=== PATIENT | male | born 2005 | race Caucasian/White ===

== ENCOUNTER 2024-08-16 19:22 | Emergency (ER) | payer BC, SELFPAY ==
--- NOTE | ~2024-08-16 | US_ITS ---
CLINICAL HISTORY: L testicle pain, swelling US Scrotum with Doppler Comparison: None Findings: Right testicle measures 3.9 x 3.4 x 1.6 cm. Left testicle measures 3.9 x 2.9 x 1.9 cm. No defined mass of the either imaged testicle. Mild asymmetry of the mediastinum testes noted. Increased vascularity, edema, and mild mass-effect of the left epididymis concerning for left-sided epididymitis, particularly in the tail. Vascular flow is preserved to both testicles without definite ultrasound findings of testicular torsion. No significant hydrocele at this time. No defined varicocele by ultrasound. Question mild fluid in the imaged inguinal canals, right greater than left. No well-defined hernia by ultrasound at this time. Doppler: Doppler arterial waveform of the right testicle demonstrates peak systolic velocity of 8 cm per 2nd and resistive index of 0 point 5. Doppler arterial waveform of the left testicle demonstrates peak systolic velocity of 6 centimeters/second and resistive index of 0.5, accounting for aliasing artifacts (image 28 of 43). IMPRESSION: 1. Increased vascularity and edema of the left epididymis concerning for left-sided epididymitis. 2. No ultrasound findings of testicular torsion. This document has been electronically signed by: Serafin Solitario MD on 08/16/2024 20:57:27
--- NOTE | 2024-08-16 19:41 | ED.MALEGU ---
HPI - Male Genitourinary General Chief complaint: Urogenital-Male Stated complaint: Left Testicle pain pt says surg day was 08/15 Time Seen by Provider: 08/16/24 20:01 Source: patient, RN notes reviewed and old records reviewed Mode of arrival: ambulatory Limitations: no limitations History of Present Illness ED Provider: Mannie PEGUERO Narrative: 19-year-old male who denies any past medical history presents for evaluation of left testicular pain. Patient reports his pain started a little over a week ago. He saw a urologist on 08/08/2024 for ?cysts on my scrotum. ? The patient was told to need to have surgery to drain the cysts However, on the day of his surgery he complained of worsening pain to the left scrotum ?my testicle was higher than it should be. ? His urologist, Dr Zelaya felt the patient may have testicular torsion and opted to change his appointment to 08/25/2024. The patient reports worsening pain to left testicle pain Denies any fevers, chills, difficulty urinating. Denies any urethral discharge He reports that he was monogamous with 1 sexual partner and is not concerned for sexually transmitted infection Related Data Previous Rx's ?Medication ?Instructions ?Recorded doxycycline hyclate 100 mg tablet 100 mg PO BID #20 tabs 08/16/24 Allergies Allergy/AdvReac Type Severity Reaction Status Date / Time No Known Allergies Allergy Verified 08/16/24 19:47 Review of Systems Constitutional: Constitutional: Denies body ache(s), Denies chills and Denies fever(s) Cardiovascular: Cardiovascular: Denies chest pain and Denies dyspnea Respiratory: Respiratory: Denies cough and Denies dyspnea Gastrointestinal: Gastrointestinal: Denies abdominal pain, Reports nausea and Denies vomiting Genitourinary: Genitourinary: Denies painful ejaculations, Denies penile discharge, Reports scrotal swelling, Reports testicular mass, Reports testicular pain, Denies urinary frequency, Denies urinary hesitancy and Denies urinary urgency Musculoskeletal: Musculoskeletal: Denies back pain Integumentary/Breasts: Skin/Breast: Denies rash PMFSH Social History Social History Smoked in Last 30 Days: No Use of substances other than those prescribed or required for medical reasons: Yes Substance Use Type: Marijuana Advance Directives: No Advance Directives Information Provided: No Physical Exam Vital Signs: Vital Signs: Last Vital Signs Temp 98.5 F 08/16/24 21:52 Pulse 90 08/16/24 21:52 Resp 16 08/16/24 21:52 BP 146/61 H 08/16/24 21:52 Pulse Ox 99 08/16/24 21:52 O2 Del Method Room Air 08/16/24 21:52 BMI result Body Mass Index 20.6 Const: General: healthy appearing, comfortable, no acute distress, alert and awake Nutritional Appearance: well nourished Orientation/consciousness: patient oriented x3 HEENT: Head: Yes normocephalic and Yes atraumatic Throat: Yes posterior oropharynx normal Eyes: Eyelids: Yes eyelids normal Conjunctivae: conjunctivae normal Sclerae: sclerae normal Corneas: corneas normal Pupils: Equal, round and reactive pupils present EOM: EOMs intact bilaterally Neck: Neck: Yes full ROM Resp: Effort & Inspection: normal respiratory effort, able to speak in complete sentences and not labored GI: Inspection: No distended Palpation (GI): Soft to palpation, not firm, nontender, no guarding and not rigid Skin: General skin exam: elasticity normal Neuro: General: patient oriented x3 Cranial nerves: Yes Equal, round and reactive pupils present and Yes Bilaterally intact EOM present Cognition (Neuro): normal cognition Course Course Course Narrative: This is an RME performed by Cindy Lawler CNP: Additional HPI, ROS, PE not included below will be deferred to primary provider. Patient is a 19-year-old male who presents to the emergency department for evaluation. He has been experiencing pain and swelling to the left testicle for the past 3-4 weeks. States he was seen by his primary care doctor initially who performed a physical examination and expressed concern for cysts on the testicle, he was [facility] to [facility] had an appointment, had an outpatient surgery scheduled for removal of the cyst. On the day of that surgery (1 week ago) endorsed significant pain that he was having to the left testicle as well as a visual heightened appearance, was advised at that time that he had testicular torsion, no radiographic or ultrasound imaging was obtained and he had a surgery scheduled for 08/25/2024. Denies any family history of testicular cancer. Admits to father having testicular torsion at a young age. Plan: Scrotal ultrasound with Doppler, urinalysis Medications Administered Discontinued Medications Generic Name Dose Route Start Last Admin Trade Name Buddy PRN Reason Stop Dose Admin Ceftriaxone Sodium 500 mg/ 0 mg 08/16/24 21:10 08/16/24 21:50 Lidocaine HCl 1 ml IM 08/16/24 21:11 1 kit ONCE ONE Administration Doxycycline Monohydrate 100 mg 08/16/24 21:10 08/16/24 21:51 Doxycycline Monohydrate 100 Mg Capsule PO 08/16/24 21:11 100 mg ONCE ONE Administration Medical Decision Making Medical Decision Making [facility] [place] Narrative: 19-year-old male presents for evaluation of left testicular pain and swelling. His labs are unremarkable, his ultrasound is concerning for epididymitis. I did discuss that this is likely a sexually transmitted infection. Gonorrhea and chlamydia serology is still pending. We will treat the patient with ceftriaxone and doxycycline. I advised him to abstain from sexual intercourse until he completes his course of antibiotics. You may still follow up with his own urologist Differential Diagnosis Differential Diagnoses: The differential diagnosis associated with the presentation includes Testicular torsion Hydrocele Epididymal cyst Varicocele Epididymitis Lab Data MDM Lab Attestation statement: I reviewed the patient's lab results. No leukocytosis or significant anemia. Normal platelet count. No electrolyte abnormalities 08/16/24 04:40 08/16/24 21:25 Labs: Lab Results 08/16/24 08/16/24 08/16/24 Range/Units 04:40 20:47 21:25 WBC 7.2 (4.8-10.8) X10*3/uL RBC 4.14 L (4.60-5.80) X10*6/uL Hgb 12.5 L (14.0-18.0) g/dl Hct 35.7 L (42.0-52.0) % MCV 86.2 (80.0-98.0) fL MCH 30.2 (27.0-33.0) pg MCHC 35.0 (31.0-36.0) g/dl RDW 13.2 (11.0-16.0) % Plt Count 203 (160-400) X10*3/uL MPV 11.0 (9.4-12.4) fL Immature Gran % (Auto) 0.3 (0.0-0.4) % Neut % (Auto) 51.9 (45-73) % Lymph % (Auto) 31.3 (20-40) % [place] % (Auto) 10.4 (2-11) % Eos % (Auto) 5.4 H (0-4) % Baso % (Auto) 0.7 (0-2) % Lymph # (Auto) 2.3 (1.2-4.9) X10*3/uL [place] # (Auto) 0.8 (0.1-1.2) X10*3/uL Eos # (Auto) 0.4 (0.0-0.4) X10*3/uL Baso # (Auto) 0.1 (0.0-0.2) X10*3/uL Abs Immat Gran (auto) 0.02 (0.00-0.03) X10*3/uL Absolute Neuts (auto) 3.7 (2.0-8.3) x10*3/uL Absolute Nucleated RBC 0.000 (0.0-0.012) X10*3/uL Nucleated RBC % (auto) 0.0 (0.0-0.2) /100WBC Sodium 141 (135-145) mmol/L Potassium 3.5 (3.3-5.1) mmol/L Chloride 107 (96-108) mmol/L Carbon Dioxide 25 (22-29) mmol/L Anion Gap 13 (12-20) BUN 15 (9-16) mg/dL Creatinine 0.76 (0.5-1.4) mg/dL Estim Creat Clear Calc 142.9 Estimated GFR > 60 Random Glucose 108 (60-115) mg/dL Calcium 9.0 (8.4-10.2) mg/dL Urine Color Yellow Urine Appearance Clear Urine pH 6.0 (5.0-9.0) Ur Specific [place] >= 1.030 H (1.005-1.025) Urine Protein Negative (Neg-Trace) mg/dL Urine Glucose (UA) Negative (Negative) mg/dL Urine Ketones 40 (Negative) mg/dL Urine Blood Negative (Negative) Urine Nitrite Negative (Negative) Ur Leukocyte Esterase Negative (Negative) Radiology Impression Discussion of test interpretation with radiology: I have reviewed the radiologist's reading. Radiologist Impression: Findings: Right testicle measures 3.9 x 3.4 x 1.6 cm. Left testicle measures 3.9 x 2.9 x 1.9 cm. No defined mass of the either imaged testicle. Mild asymmetry of the mediastinum testes noted. Increased vascularity, edema, and mild mass-effect of the left epididymis concerning for left-sided epididymitis, particularly in the tail. Vascular flow is preserved to both testicles without definite ultrasound findings of testicular torsion. No significant hydrocele at this time. No defined varicocele by ultrasound. Question mild fluid in the imaged inguinal canals, right greater than left. No well-defined hernia by ultrasound at this time. Doppler: Doppler arterial waveform of the right testicle demonstrates peak systolic velocity of 8 cm per 2nd and resistive index of 0 point 5. Doppler arterial waveform of the left testicle demonstrates peak systolic velocity of 6 centimeters/second and resistive index of 0.5, accounting for aliasing artifacts (image 28 of 43). IMPRESSION: 1. Increased vascularity and edema of the left epididymis concerning for left-sided epididymitis. 2. No ultrasound findings of testicular torsion. This document has been electronically signed by: Serafin Solitario MD on 08/16/2024 20:57:27 Discharge Plan Discharge Clinical Impression: Acute epididymitis Patient Disposition: Home, Self-Care Instructions: Epididymitis (ED) Additional Instructions: Your ultrasound show findings concerning for epididymitis which is an infection that is usually sexually transmitted Take the antibiotics as prescribed. I recommend that you abstain from sexual intercourse until after you completely antibiotics You may follow-up with your urologist Return for new or worsening symptoms Prescriptions: New doxycycline hyclate 100 mg tablet 100 mg PO BID Qty: 20 0RF Print Language: Haitian
[2024-08-16 19:42] VITALS: BP 101/61; PULSE 122; RESP 20; TEMP 37.1; O2SAT 96; BMI 20.6
[2024-08-16 20:35] VITALS: BP 124/61; PULSE 94; RESP 16; TEMP 37.3; O2SAT 96
[2024-08-16 20:53] LABS: Appearance Urine Clear; Color Urine Yellow; Glucose Urine UA Negative (Negative); Leukocyte Esterase Urine Negative (Negative); Nitrite Urine Negative (Negative); Specific Gravity - Urine >= 1.030 (1.005-1.025); Urine Blood Negative (Negative); Urine Ketones 40 mg/dL (Negative); Urine Protein Negative (Neg-Trace)
[2024-08-16 21:30] LABS: MANUAL DIFF FLAG NO
[2024-08-16 21:31] LABS: Basophils Absolute Auto 0.1 X10*3/uL (0.0-0.2); Basophils Percent Auto 0.7 % (0-2); Eosinophils Absolute Auto 0.4 X10*3/uL (0.0-0.4); Eosinophils Percent Auto 5.4 % (0-4); Hematocrit 35.7 % (42.0-52.0); Hemoglobin 12.5 g/dl (14.0-18.0); Imm Gran Abs Auto 0.02 X10*3/uL (0.00-0.03); Imm Gran Pct Auto 0.3 % (0.0-0.4); Lymphocytes Absolute Auto 2.3 X10*3/uL (1.2-4.9); Lymphocytes Percent Auto 31.3 % (20-40); Mean Corpuscular Hemoglobin 30.2 pg (27.0-33.0); Mean Corpuscular Volume 86.2 fL (80.0-98.0); Monocytes Absolute Auto 0.8 X10*3/uL (0.1-1.2); Monocytes Percent Auto 10.4 % (2-11); Neutrophils Absolute Auto 3.7 x10*3/uL (2.0-8.3); Neutrophils Percent Auto 51.9 % (45-73); Platelet Count 203 X10*3/uL (160-400); Red Blood Count 4.14 X10*6/uL (4.60-5.80); Red Cell Distribution Width 13.2 % (11.0-16.0); White Blood Count 7.2 X10*3/uL (4.8-10.8)
[2024-08-16] MEDS: cefTRIAXone sodium 500 MG, Lidocaine HCl 1 % MPF 1 ML IM (21:50)
[2024-08-16] MEDS: Doxycycline Monohydrate 100 MG CAPSULE PO (21:51)
[2024-08-16 21:52] VITALS: BP 146/61; PULSE 90; RESP 16; TEMP 36.9; O2SAT 99
[2024-08-16 21:58] LABS: Anion Gap 13 (12-20); Blood Urea Nitrogen 15 mg/dL (9-16); Carbon Dioxide 25 mmol/L (22-29); Chloride 107 mmol/L (96-108); Creatinine Clr Calc Pharmacy 142.9; Estimated Glomerular Filt Rate > 60; Glucose Random 108 mg/dL (60-115); Potassium 3.5 mmol/L (3.3-5.1); Sodium 141 mmol/L (135-145)
[2024-08-16 22:22] VITALS: BP 146/61; PULSE 90; RESP 16; TEMP 36.9; O2SAT 99
[2024-08-17 12:53] LABS: CT PCR NOT DETECTED (Not Detect.); NG PCR NOT DETECTED (Not Detect.)
== END 2024-08-16 22:30 | disposition home or self-care (01) ==
PROVIDERS: Nurse Practitioner Family; Physician Assistant; Emergency Provider Emergency Medicine
DX: N45.1 Epididymitis (principal); N50.812 Left testicular pain
CPT/HCPCS: 36415; 76870; 80048; 81003; 85025; 87491; 87591; 93975; 96372; 99284; J0696; J2003

== ENCOUNTER → 2024-08-16 19:44 | Outpatient (BNV) | payer BC, SELFPAY | PROVIDERS: Visit Provider Radiology Neuroradiology | DX: R60.0 Localized edema (principal) | CPT/HCPCS: 93975 ==